=== PATIENT | male | born 1975 | race Caucasian/White ===

== ENCOUNTER 2016-08-29 10:34 | Inpatient (IN) | payer BC, OTHER ==
[~2016-08-29] VITALS: Ht 175.3 cm; Wt 111.1 kg
--- NOTE | 2016-08-29 13:25 | NUR ---
Intake assessment; Patient is a 41 year old male, presented to [facility] to detoxify from Heroin, and Benzodiazepines. Patient is AOX4, appears slightly anxious and nervous. Patient's vital signs are as follows; BP 110/76, HR 81, temperature 97.6, respirations 18, Spo2 95% on room air. Patient stated that he did not bring any home medications with him. Educated patient regarding unit policies and protocols, patient verbalized understanding. Will continue with further interview when patient is up in the unit.
[2016-08-29 13:35] VITALS: BP 110/76
[2016-08-29] MEDS ORDERED: HYDROXYZINE PAMOATE 25 MG CAPSULE PO PRN (14:00)
[2016-08-29] MEDS ORDERED: MAG HYDROX/AL HYDROX/SIMETH 30 ML LIQUID UDC PO PRN (14:00)
[2016-08-29] MEDS ORDERED: MAGNESIUM HYDROXIDE 30 ML LIQUID UDC PO PRN (14:00)
[2016-08-29] MEDS ORDERED: ONDANSETRON 4 MG/2 ML VIAL IM PRN (14:00)
[2016-08-29] MEDS ORDERED: MIRALAX 17 GM POWD.PACK PO PRN (14:00)
[2016-08-29] MEDS ORDERED: DICYCLOMINE HCL 20 MG TABLET PO PRN (14:00)
[2016-08-29] MEDS ORDERED: ACETAMINOPHEN 325 MG TABLET PO PRN (14:00)
[2016-08-29] MEDS ORDERED: LOPERAMIDE HCL 2 MG CAPSULE PO PRN ×2 (14:00)
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
[2016-08-29] MEDS ORDERED: DIAZEPAM 10 MG TABLET PO SCH ×2 (15:00→21:00)
[2016-08-29 15:30] LABS: *AMPHETAMINE, URINE NEGATIVE (NEGATIVE); *BARBITURATE, URINE NEGATIVE (NEGATIVE); *CANNABINOID, URINE NEGATIVE (NEGATIVE); *COCCAINE, URINE NEGATIVE (NEGATIVE); *OPIATE, URINE POSITIVE (NEGATIVE); *PHENCYCLIDINE SCREEN,URINE NEGATIVE (NEGATIVE)
[2016-08-29 15:36] LABS: BASOPHILS # (AUTO) 0.1 K/uL (0.0-8.0); BASOPHILS % (AUTO) 0.6 % (0.0-2.0); EOSINOPHILS # (AUTO) 0.3 K/uL (0.0-0.7); EOSINOPHILS % (AUTO) 2.4 % (0.0-7.0); HEMATOCRIT 36.9 % (40-50); HEMOGLOBIN 12.3 G/DL (14.0-18.0); LYMPHOCYTES # (AUTO) 2.7 K/uL (20.0-40.0); LYMPHOCYTES % (AUTO) 24.5 % (20.5-51.5); MEAN CORPUSCULAR HEMOGLOBIN 31.7 UUG (27.0-31.0); MEAN CORPUSCULAR HGB CONC 33 g/dL (32.0-37.0); MONOCYTES # (AUTO) 0.8 K/uL (2.0-10.0); MONOCYTES % (AUTO) 6.8 % (0.0-11.0); NEUTROPHILS # (AUTO) 7.2 K/uL (1.8-8.9); NEUTROPHILS % (AUTO) 65.7 % (38.5-71.5); PLATELET COUNT (AUTO) 269 K/UL (150-450); RED BLOOD CELL COUNT(AUTO) 3.89 MIL/UL (4.7-6.1); RED CELL DISTRIBUTION WIDTH 15.8 % (11.5-14.5); WHITE BLOOD COUNT (AUTO) 11.1 K/UL (4.0-11.2)
[2016-08-29 15:49] LABS: ETHANOL < 3 MG/DL (0-0)
[2016-08-29 15:53] LABS: ALANINE AMINOTRANSFERASE 28 U/L (16-63); ALBUMIN 3.2 g/dL (3.4-5.0); ALKALINE PHOSPHATASE 116 U/L (50-136); ASPARTATE AMINOTRANSFERASE 39 U/L (15-37); BILIRUBIN,TOTAL 0.6 mg/dL (0.2-1.0); CALCIUM 8.6 mg/dL (8.5-10.1); CHLORIDE 102 mmol/L (98-107); CREATININE 0.7 mg/dL (0.6-1.3); GFR 124 mL/min (>60); GLUCOSE 118 mg/dL (74-106); MAGNESIUM 1.8 mg/dL (1.8-2.4); NT-PRO BNP 126 pg/mL (0-125); POTASSIUM 3.5 mmol/L (3.5-5.1); SODIUM SERUM 141 mmol/L (136-145); TOTAL PROTEIN, SERUM 7.8 g/dL (6.4-8.2); UREA NITROGEN, BLOOD 9 mg/dL (7-18)
[2016-08-29 15:55] LABS: CARBON DIOXIDE 33 mmol/L (21-32)
[2016-08-29 16:00] VITALS: BP 98/67
[2016-08-29 16:18] LABS: THYROID STIMULATING HORMONE 2.434 mIU/mL (0.358-3.740)
[2016-08-29 16:31] LABS: HIV-1 p24 ANTIGEN NON REACTIVE (NONREACTIVE); HIV-1/2 ANTIBODY NON REACTIVE (NONREACTIVE)
[2016-08-29] MEDS ORDERED: DIAZEPAM 10 MG TABLET PO PRN ×2 (17:15)
[2016-08-29] MEDS ORDERED: DIAZEPAM 5 MG TABLET PO PRN (17:15)
[2016-08-29] MEDS ORDERED: LORAZEPAM 2 MG/1 ML VIAL IM PRN (17:15)
[2016-08-29] MEDS ORDERED: MAGNESIUM OXIDE 400 MG TABLET PO ONE (17:45)
[2016-08-29] MEDS ORDERED: POTASSIUM CHLORIDE 10 MEQ CAPSULE.SA PO ONE (17:45)
--- NOTE | 2016-08-29 18:44 | NUR ---
End of shift note; Patient is AOX4. Patient was seen and evaluated by MD. Patient to start Valium and Subutex tapers. Patient remained compliant with treatment plan and medication regime. DVT pumps at bedside for VTE score of 2, educated patient on how to use pumps to prevent DVT, verbalized understanding. Patient is on fall and seizure precaution. Bed in lowest position, call light within reach. all safety measures secured. Met all needs.
[2016-08-29 20:00] VITALS: BP 99/62
--- NOTE | 2016-08-29 20:45 | NUR ---
START OF SHIFT NOTE Pt is a 41 y/o male admitted for Xanax, Heroin, and Klonopin dependence and use. Pt has NKA but reported a PMH of back, hip, and shoulder injury, bradycardia, and hepatitis c. Per day shift nurse pt was placed on a 6 day Subutex and Valium taper and is tolerating medication well with no s/e or a/r reported. Pt is scheduled to begin Subutex taper in tomorrow. Per day shift nurse pt didn't receive any PRNS during the day shift. Last COW: 5 and CIWA: 10 (1600). At this time the pt is laying down in bed watching television. Pt stated " I'm okay. My body is aching all over though." Pt was encouraged to notify staff of any changes in condition or of any concerns. Pt verbalized an understanding. All safety measures in place. Will continue to monitor.
[2016-08-29] MEDS ORDERED: BUPRENORPHINE HCL 2 MG TAB.SUBL SL PRN (21:00)
[2016-08-29] MEDS: GABAPENTIN 300 MG CAPSULE PO SCH (21:26)
[2016-08-29] MEDS: IBUPROFEN 600 MG TABLET PO PRN (21:26)
[2016-08-29] MEDS: METHOCARBAMOL 750 MG TABLET PO PRN (21:27)
--- NOTE | 2016-08-29 21:27 | NUR ---
ROBAXIN, BENADRYL, AND MOTRIN PRN Pt stated " I need something for my body aches and leg pain. Its about a 6/10 right now. I also need something to help me sleep." Benadryl 50 mg PO PRN, Motrin 600 mg PO PRN, and Robaxin 750 mg PO PRN was given. Pt was encouraged to notify staff of any changes in condition or of any concerns. Pt verbalized an understanding. All safety measures in place. Will monitor for effectiveness.
[2016-08-29] MEDS: diphenhydrAMINE 50 MG CAPSULE PO PRN (21:34)
--- NOTE | 2016-08-29 22:17 | NUR ---
CANDY, LETY, AND KENNEDY Pt stated " I feel better. I'm going back to sleep." PRNS effective. All safety measures in place. Will continue to monitor. Addendum: 08/30/16 at 0518 by MO CONTRERAS LVN REASSESSMENT
[2016-08-30] VITALS: BP_SYST 104; BP_SYST 98; BP_DIAS 55; BP_DIAS 71
[2016-08-30 04:00] VITALS: BP 112/61
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
--- NOTE | 2016-08-30 07:39 | NUR ---
START OF SHIFT Received pt this am AOx4. Pt c/o body aches, stomach pains and anxiety this morning. He is on a 6 day Valium taper which started yesterday and 6 day Subutex taper to start this morning. Pt was given PRN Benadryl, Robaxin, and Motrin per night nurse with effectiveness. Pt slept 8 hours. 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 Encouraged pt to increase fluid intake to facilitate detox. Will provide safe and supportive environment. Will monitor.
[2016-08-30 08:00] VITALS: BP 101/67
[2016-08-30] MEDS: BUPRENORPHINE HCL 2 MG TAB.SUBL SL SCH ×4 (08:15→21:10)
[2016-08-30] MEDS: DIAZEPAM 10 MG TABLET PO SCH ×4 (08:16→21:11)
[2016-08-30] MEDS: MULTIVITAMINS,THERAPEUTIC TABLET PO SCH (08:16)
[2016-08-30] MEDS: GABAPENTIN 300 MG CAPSULE PO SCH ×3 (08:16→21:11)
[2016-08-30] MEDS ORDERED: DIAZEPAM 10 MG TABLET PO SCH (09:00)
[2016-08-30] MEDS ORDERED: TUBERCULIN,PURIF.PROT.DERIV. 5 TU/0.1 ML TEST ID ONE (09:00)
[2016-08-30] MEDS ORDERED: BUPRENORPHINE HCL 2 MG TAB.SUBL SL ONE ×2 (10:30→19:00)
[2016-08-30] MEDS ORDERED: DIAZEPAM 10 MG TABLET PO ONE (10:30)
--- NOTE | 2016-08-30 11:28 | NUR ---
PRN MEDS PRN Bentyl given for c/o stomach cramps 6/10 on pain scale. Will reassess
[2016-08-30] MEDS ORDERED: CLONIDINE HCL 0.1 MG TABLET PO ONE (11:30)
[2016-08-30 12:00] VITALS: BP_SYST 125; BP_SYST 175; BP_DIAS 68; BP_DIAS 93
[2016-08-30] MEDS: FLUTICASONE PROP NASAL SPRAY 16 GM BOTTLE NS SCH (12:12)
--- NOTE | 2016-08-30 12:18 | NUR ---
PRN REASSESSMENT Pt states stomach pain is now 4/10. Will continue to monitor
[2016-08-30] MEDS: IBUPROFEN 600 MG TABLET PO PRN (13:17)
--- NOTE | 2016-08-30 13:18 | NUR ---
PRN MEDICATION PRN motrin given for c/o back pain 10/10 on pain scale. Will reassess.
--- NOTE | 2016-08-30 14:00 | NUR ---
PRN REASSESSMENT Pt reports back pain is now 4/10 on pain scale. Pt resting in bed with bed locked and in lowest position and call garcia within reach Will monitor
[2016-08-30] MEDS ORDERED: DIAZEPAM 10 MG TABLET PO PRN ×2 (14:15)
[2016-08-30] MEDS ORDERED: DIAZEPAM 5 MG TABLET PO PRN (14:15)
[2016-08-30] MEDS ORDERED: BUPRENORPHINE HCL 2 MG TAB.SUBL SL PRN (14:15)
--- NOTE | 2016-08-30 14:17 | NUR ---
ISOLATION ORDER Patient placed on contact precautions for positive MRSA. Educated patient
[2016-08-30 15:32] LABS: BASOPHILS % (AUTO) 0.5 % (0.0-2.0); EOSINOPHILS # (AUTO) 0.1 K/uL (0.0-0.7); EOSINOPHILS % (AUTO) 0.9 % (0.0-7.0); HEMATOCRIT 38.4 % (40-50); HEMOGLOBIN 12.5 G/DL (14.0-18.0); LYMPHOCYTES # (AUTO) 1.5 K/uL (20.0-40.0); LYMPHOCYTES % (AUTO) 18.4 % (20.5-51.5); MEAN CORPUSCULAR HEMOGLOBIN 30.8 UUG (27.0-31.0); MEAN CORPUSCULAR HGB CONC 33 g/dL (32.0-37.0); MEAN CORPUSCULAR VOLUME 94.3 FL (82.0-92.0); MONOCYTES # (AUTO) 0.6 K/uL (2.0-10.0); MONOCYTES % (AUTO) 7.6 % (0.0-11.0); NEUTROPHILS # (AUTO) 6.2 K/uL (1.8-8.9); NEUTROPHILS % (AUTO) 72.6 % (38.5-71.5); PLATELET COUNT (AUTO) 282 K/UL (150-450); RED BLOOD CELL COUNT(AUTO) 4.08 MIL/UL (4.7-6.1); RED CELL DISTRIBUTION WIDTH 15.7 % (11.5-14.5); WHITE BLOOD COUNT (AUTO) 8.4 K/UL (4.0-11.2)
[2016-08-30 15:54] LABS: CALCIUM 9.1 mg/dL (8.5-10.1); CREATININE 0.7 mg/dL (0.6-1.3); PHOSPHOROUS 1.6 mg/dL (2.5-4.9); POTASSIUM 3.8 mmol/L (3.5-5.1)
[2016-08-30 16:00] VITALS: BP 114/84
--- NOTE | 2016-08-30 18:41 | NUR ---
END OF SHIFT Pt on 6 day Valium/6 day Subutex taper and tolerating well. Pt on contact precautions for positive MRSA swab of the nares. Pt given PRN Bentyl and Motrin for stomach pain and back pain this shift with effectiveness. Last COWS . Patient had heightened W/D symptoms during shift and was properly medicated per doctor orders. TB test administered to [facility] and is to be read 09/01/16. Pt currently resting in bed with bed locked and in lowest position and call garcia within reach. All needs have been met. Safety measures in place. Will endorse to night nurse. Addendum: 08/30/16 at 1856 by JOSE MALLORY RN COWS 13. 4 mg Subutex one time dose ordered at 1850. Waiting for pharmacy to verify. Will endorse to night nurse to administer. Addendum: 08/30/16 at 1911 by JOSE MALLORY RN Subutex administered. Endorsed to night nurse to reassess COWS
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
[2016-08-30 20:00] VITALS: BP 128/80
[2016-08-30] MEDS ORDERED: NEUTRA PHOS PACKET PO ONE (21:00)
[2016-08-30] MEDS: diphenhydrAMINE 50 MG CAPSULE PO PRN (21:11)
[2016-08-30] MEDS: MUPIROCIN 2% OINT 22 GM TUBE NS SCH (21:11)
[2016-08-30] MEDS: ONDANSETRON ODT 4 MG TAB.RAPDIS SL PRN (21:11)
[2016-08-30] MEDS: METHOCARBAMOL 750 MG TABLET PO PRN (21:11)
--- NOTE | 2016-08-30 21:11 | NUR ---
PRN Administration Patient complains of 8/10 body aches & nausea. No episode of vomiting noted. Patient also requesting for medication for sleep. Patient noted to be restless and with facial grimacing noted. PRN Robaxin, Zofran & Benadryl given as ordered. Safety precautions are in place. Will continue to monitor patient.
--- NOTE | 2016-08-30 22:11 | NUR ---
PRN Reassessment Patient asleep in bed and appears comfortable. No shortness of breath noted. No s/s of distress. Safety precautions are in place. Will continue to monitor.
[2016-08-31] VITALS: BP 104/55
--- NOTE | 2016-08-31 00:21 | NUR ---
MD Communication Vitals signs checked and noted with O2Sat @ 88% on RA. Patient vitals B/P 104/55, OR 55, RR 16. Educated patient about need for oxygen to maintain O2sat but refused 3x. Explained risk and benefits but still refused. Per pt, he does not have any trouble breathing. Dr. Herrmann notified and aware. Will continue to monitor patient.
[2016-08-31 04:00] VITALS: BP 114/68
[2016-08-31] MEDS: IBUPROFEN 600 MG TABLET PO PRN (05:24)
[2016-08-31] MEDS: CLONIDINE HCL 0.1 MG TABLET PO PRN (05:24)
[2016-08-31] MEDS: ONDANSETRON ODT 4 MG TAB.RAPDIS SL PRN (05:24)
--- NOTE | 2016-08-31 05:24 | NUR ---
PRN Administration Patient complains of nausea, sweating, chills, body aches, mild headache & anxiety. Patient is anxious and agitated. Vitals WNL. PRN Zofran, Clonidine, Motrin & Vistaril administered as ordered. Will continue to monitor patient.
--- NOTE | 2016-08-31 06:24 | NUR ---
PRN Reassessment Patient is asleep in bed and appears comfortable. No shortness of breath noted. Respiration even & unlabored. No s/s of distress noted. Safety precautions are in place. Will continue to monitor patient.
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
[2016-08-31 08:00] VITALS: BP 114/74
[2016-08-31 08:29] LABS: BASOPHILS # (AUTO) 0.1 K/uL (0.0-8.0); BASOPHILS % (AUTO) 2.2 % (0.0-2.0); EOSINOPHILS # (AUTO) 0.1 K/uL (0.0-0.7); HEMATOCRIT 36.9 % (40-50); HEMOGLOBIN 12.1 G/DL (14.0-18.0); LYMPHOCYTES % (AUTO) 31.5 % (20.5-51.5); MEAN CORPUSCULAR HEMOGLOBIN 30.9 UUG (27.0-31.0); MEAN CORPUSCULAR HGB CONC 33 g/dL (32.0-37.0); MEAN CORPUSCULAR VOLUME 94.5 FL (82.0-92.0); MONOCYTES # (AUTO) 0.5 K/uL (2.0-10.0); MONOCYTES % (AUTO) 7.6 % (0.0-11.0); NEUTROPHILS # (AUTO) 3.7 K/uL (1.8-8.9); NEUTROPHILS % (AUTO) 56.7 % (38.5-71.5); PLATELET COUNT (AUTO) 263 K/UL (150-450); RED CELL DISTRIBUTION WIDTH 15.5 % (11.5-14.5); WHITE BLOOD COUNT (AUTO) 6.4 K/UL (4.0-11.2)
[2016-08-31] MEDS: DIAZEPAM 10 MG TABLET PO SCH ×4 (08:49→21:21)
[2016-08-31 08:50] LABS: BILIRUBIN,TOTAL 0.3 mg/dL (0.2-1.0); CALCIUM 8.4 mg/dL (8.5-10.1); CREATININE 0.7 mg/dL (0.6-1.3); PHOSPHOROUS 2.6 mg/dL (2.5-4.9); POTASSIUM 3.9 mmol/L (3.5-5.1)
[2016-08-31] MEDS: GABAPENTIN 300 MG CAPSULE PO SCH ×3 (08:50→21:22)
[2016-08-31] MEDS: MUPIROCIN 2% OINT 22 GM TUBE NS SCH ×2 (08:50→21:29)
[2016-08-31] MEDS: MULTIVITAMINS,THERAPEUTIC TABLET PO SCH (08:50)
[2016-08-31] MEDS: BUPRENORPHINE HCL 2 MG TAB.SUBL SL SCH ×4 (08:50→21:22)
[2016-08-31 08:51] LABS: ALBUMIN 2.9 g/dL (3.4-5.0); BILIRUBIN,DIRECT 0.1 mg/dL (0.0-0.2); MAGNESIUM 1.9 mg/dL (1.8-2.4); TOTAL PROTEIN, SERUM 7.3 g/dL (6.4-8.2)
[2016-08-31] MEDS: FLUTICASONE PROP NASAL SPRAY 16 GM BOTTLE NS SCH (08:52)
[2016-08-31 09:04] LABS: FOLIC ACID 3.1 NG/ML (8.6-58.9)
[2016-08-31] MEDS ORDERED: BUPRENORPHINE HCL 2 MG TAB.SUBL SL PRN ×2 (11:30→15:15)
[2016-08-31] MEDS ORDERED: DIAZEPAM 10 MG TABLET PO PRN ×4 (11:30→15:15)
[2016-08-31] MEDS ORDERED: BUPRENORPHINE HCL 2 MG TAB.SUBL SL ONE (11:30)
[2016-08-31] MEDS ORDERED: DIAZEPAM 10 MG TABLET PO ONE (11:30)
[2016-08-31] MEDS ORDERED: DIAZEPAM 5 MG TABLET PO PRN ×2 (11:30→15:15)
[2016-08-31 12:00] VITALS: BP 116/84
[2016-08-31 13:06] LABS: HCV AB >11.0 s/co ratio (0.0-0.9); HEPATITIS B CORE AB, IgM Negative (Negative); HEPATITIS B SURFACE AG Negative (Negative)
[2016-08-31] MEDS: BACLOFEN 10 MG TABLET PO SCH ×2 (14:34→21:22)
[2016-08-31] MEDS: DICYCLOMINE HCL 20 MG TABLET PO SCH ×2 (14:34→21:22)
[2016-08-31 16:00] VITALS: BP 100/63
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
[2016-08-31 20:00] VITALS: BP 111/60
[2016-08-31] MEDS ORDERED: TRAZODONE 100 MG TABLET PO SCH (21:00)
--- NOTE | 2016-09-01 07:00 | NUR ---
Start of Shift Pt is a 41 y/o male admitted for Xanax and Heroin dependence. Pt has been placed on a 6 day Subutex and 6 day Valium taper. Pt is tolerating the taper well and mildly withdrawing at this time AEB COWS 4, CIWA 3 at 0400. Pt did not receive any PRN medications and reports sleeping 8 hours. VS WNL, Full Code. Pt is in STABLE condition at this time. Remains compliant with medication and diet regimen. All needs have been met, All safety measures in place per hospital policy. Bed in lowest position, side rails up x2, call-light within reach. Will continue to monitor.
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
[2016-09-01 08:00] VITALS: BP 104/61
[2016-09-01 08:29] LABS: BASOPHILS # (AUTO) 0.2 K/uL (0.0-8.0); EOSINOPHILS # (AUTO) 0.2 K/uL (0.0-0.7); EOSINOPHILS % (AUTO) 2.1 % (0.0-7.0); HEMOGLOBIN 12.9 G/DL (14.0-18.0); LYMPHOCYTES # (AUTO) 2.6 K/uL (20.0-40.0); MEAN CORPUSCULAR HEMOGLOBIN 31.3 UUG (27.0-31.0); MEAN CORPUSCULAR HGB CONC 33 g/dL (32.0-37.0); MEAN CORPUSCULAR VOLUME 94.4 FL (82.0-92.0); MONOCYTES # (AUTO) 0.4 K/uL (2.0-10.0); MONOCYTES % (AUTO) 5.6 % (0.0-11.0); NEUTROPHILS % (AUTO) 54.3 % (38.5-71.5); PLATELET COUNT (AUTO) 233 K/UL (150-450); RED BLOOD CELL COUNT(AUTO) 4.13 MIL/UL (4.7-6.1); RED CELL DISTRIBUTION WIDTH 15.6 % (11.5-14.5); WHITE BLOOD COUNT (AUTO) 7.4 K/UL (4.0-11.2)
[2016-09-01] MEDS: ASCORBIC ACID 250 MG TABLET PO SCH ×2 (08:39→20:20)
[2016-09-01] MEDS: FERROUS SULFATE 325 MG TABEC PO SCH ×2 (08:39→20:20)
[2016-09-01] MEDS: FLUTICASONE PROP NASAL SPRAY 16 GM BOTTLE NS SCH (08:39)
[2016-09-01] MEDS: BACLOFEN 10 MG TABLET PO SCH ×3 (08:40→20:20)
[2016-09-01] MEDS: BUPRENORPHINE HCL 2 MG TAB.SUBL SL SCH ×3 (08:40→20:19)
[2016-09-01] MEDS: DIAZEPAM 10 MG TABLET PO SCH ×3 (08:40→20:20)
[2016-09-01] MEDS: GABAPENTIN 300 MG CAPSULE PO SCH ×3 (08:40→20:21)
[2016-09-01] MEDS: DICYCLOMINE HCL 20 MG TABLET PO SCH ×3 (08:40→20:20)
[2016-09-01] MEDS: MULTIVITAMINS,THERAPEUTIC TABLET PO SCH (08:41)
[2016-09-01] MEDS: MUPIROCIN 2% OINT 22 GM TUBE NS SCH ×2 (08:41→20:22)
[2016-09-01] MEDS: FOLIC ACID 1 MG TABLET PO SCH (08:41)
[2016-09-01 08:47] LABS: CALCIUM 8.8 mg/dL (8.5-10.1); CREATININE 0.8 mg/dL (0.6-1.3); PHOSPHOROUS 3.8 mg/dL (2.5-4.9)
[2016-09-01 12:00] VITALS: BP 110/72
[2016-09-01 16:00] VITALS: BP 112/68
--- NOTE | 2016-09-01 19:29 | NUR ---
End of Shift Endorsement given to nightshift nurse. Pt is a 41 y/o male admitted for Xanax and Heroin dependence. Pt has been placed on a 6 day Subutex and 6 day Valium taper. Pt is tolerating the taper well and mildly withdrawing at this time AEB COWS 3, CIWA 2 at 1600. Pt did not receive any PRN medications, did not participate in groups. Encouraged pt to participate in groups and activities to help him develop the skills needed for sobriety. Intake: 1600ml, Void x1, BM x0. VS WNL, Full Code. Pt is in STABLE condition at this time. Remains compliant with medication and diet regimen. All needs have been met, All safety measures in place per hospital policy. Bed in lowest position, side rails up x2, call-light within reach. Will continue to monitor.
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
[2016-09-01 20:00] VITALS: BP 119/68
[2016-09-01] MEDS: QUETIAPINE FUMARATE 100 MG TABLET PO SCH (20:20)
--- NOTE | 2016-09-02 03:00 | NUR ---
PRN CLONIDINE , ROBAXIN, TYLENOL Pt. complains of body ache 6/10, muscle spasm, flashes. PRN CLONIDINE , ROBAXIN, TYLENOL given as ordered. Safety measures in place : bed on lowest position with side rails x2 up for safety, call light within reach. Will continue to monitor closely and offer help.
[2016-09-02] MEDS: METHOCARBAMOL 750 MG TABLET PO PRN (03:29)
[2016-09-02] MEDS: CLONIDINE HCL 0.1 MG TABLET PO PRN (03:30)
--- NOTE | 2016-09-02 03:55 | NUR ---
REASSESSMENT CLONIDINE , ROBAXIN, TYLENOL Pt. feels better , states decreased level of muscle spasm, decreased level of pain , 3-4/10. Safety measures in place : bed on lowest position with side rails x2 up for safety, call light within reach. Will continue to monitor closely and offer help.
[2016-09-02 04:00] VITALS: BP 125/72
--- NOTE | 2016-09-02 04:30 | NUR ---
PRN TORADOL IM Pt. complains of body ache 12/06. PRN TORADOL given as ordered. Safety measures in place : bed on lowest position with side rails x2 up for safety, call light within reach. Will continue to monitor closely and offer help.
[2016-09-02] MEDS: KETOROLAC TROMETHAMINE 30 MG INJ IM PRN ×2 (05:02→16:52)
--- NOTE | 2016-09-02 05:25 | NUR ---
REASSESSMENT TORADOL IM Pt. feels better , states decreased level decreased level of pain , 2-310. Safety measures in place : bed on lowest position with side rails x2 up for safety, call light within reach. Will continue to monitor closely and offer help.
--- NOTE | 2016-09-02 07:05 | NUR ---
Start of Shift Endorsement received from nightshift nurse. Pt is a 41 y/o male admitted for Xanax and Heroin dependence. Pt has been placed on a 6 day Subutex and 6 day Valium taper. Pt is tolerating the taper well and mildly withdrawing at this time AEB COWS 2, CIWA 3 at 0400. Pt received PRN Tylenol, Robaxin, Toradol and Clonidine. Pt reports trouble falling asleep, pt slept 4 hours. VS WNL, Full Code. Pt is in STABLE condition at this time. Remains compliant with medication and diet regimen. All needs have been met, All safety measures in place per hospital policy. Bed in lowest position, side rails up x2, call-light within reach. Will continue to monitor.
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
[2016-09-02 08:00] VITALS: BP 93/60
[2016-09-02] MEDS: DICYCLOMINE HCL 20 MG TABLET PO SCH ×3 (08:37→20:44)
[2016-09-02] MEDS: GABAPENTIN 300 MG CAPSULE PO SCH ×3 (08:37→20:44)
[2016-09-02] MEDS: BACLOFEN 10 MG TABLET PO SCH ×3 (08:37→20:44)
[2016-09-02] MEDS: MULTIVITAMINS,THERAPEUTIC TABLET PO SCH (08:37)
[2016-09-02] MEDS: FOLIC ACID 1 MG TABLET PO SCH (08:38)
[2016-09-02] MEDS: ASCORBIC ACID 250 MG TABLET PO SCH ×2 (08:38→20:45)
[2016-09-02] MEDS: FLUTICASONE PROP NASAL SPRAY 16 GM BOTTLE NS SCH (08:38)
[2016-09-02] MEDS: FERROUS SULFATE 325 MG TABEC PO SCH ×2 (08:38→20:44)
[2016-09-02] MEDS: DIAZEPAM 5 MG TABLET PO SCH ×4 (08:38→20:45)
[2016-09-02] MEDS: MUPIROCIN 2% OINT 22 GM TUBE NS SCH ×2 (08:38→20:44)
[2016-09-02] MEDS ORDERED: BUPRENORPHINE HCL 2 MG TAB.SUBL SL SCH ×3 (09:00→17:00)
[2016-09-02 12:00] VITALS: BP 108/68
[2016-09-02] MEDS: BUPRENORPHINE HCL 2 MG TAB.SUBL SL SCH ×2 (12:16→20:46)
[2016-09-02 16:00] VITALS: BP 124/84
--- NOTE | 2016-09-02 16:52 | NUR ---
PRN Toradol Pt received PRN Toradol 30mg for reported generalized body aches and back pain rated 9/10.
--- NOTE | 2016-09-02 17:22 | NUR ---
Medication Re-assessment Medication was effective, Pt reports 3/10 pain at this time and reports feeling comfortable.
--- NOTE | 2016-09-02 19:01 | NUR ---
End of Shift Endorsement given to nightshift nurse. Pt is a 41 y/o male admitted for Xanax and Heroin dependence. Pt has been placed on a 6 day Subutex and 6 day Valium taper. Pt is tolerating the taper well and moderately withdrawing at this time AEB COWS 6, CIWA 3 at 1600. Pt received PRN Toradol for severe generalized body aches. Held Subutex 2mg at [address] Herrmann due to COWS below 10. Pt participated in group and activities. Intake: 1500ml, Void x1, BM x0. VS WNL, Full Code. Pt is in STABLE condition at this time. Remains compliant with medication and diet regimen. All needs have been met, All safety measures in place per hospital policy. Bed in lowest position, side rails up x2, call-light within reach. Will continue to monitor.
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
[2016-09-02 20:00] VITALS: BP 119/83
[2016-09-02] MEDS: QUETIAPINE FUMARATE 100 MG TABLET PO SCH (20:45)
[2016-09-02] MEDS: TRAZODONE 100 MG TABLET PO PRN (21:07)
--- NOTE | 2016-09-02 21:07 | NUR ---
PRN Milk of Magnesia and Trazodone administration Pt reports no BM since prior to admission. Bowel sounds present. He also reports inability to sleep and routine Seroquel alone was not effective last night. PRN Milk of Magnesia and Trazodone administered. Encouraged fluids.
--- NOTE | 2016-09-02 22:07 | NUR ---
PRN MOM and Trazodone reassessment PRN Trazodone effective. Pt is lying in bed resting with eyes closed. Respirations even and unlabored. PRN MOM not yet effective. Pt did not report a BM prior to going to sleep.
[2016-09-03] VITALS: BP 119/69
--- NOTE | 2016-09-03 00:15 | NUR ---
Oxygen 2LMP via nasal cannula Pt's O2 sat was 91% and RR 20 while sleeping. Respirations even and unlabored. Pt placed on Oxygen 2LPM via nasal cannula and O2 sat increased to 96%.
[2016-09-03 04:00] VITALS: BP 119/69
--- NOTE | 2016-09-03 07:05 | NUR ---
Start of Shift Endorsement received from nightshift nurse. Pt is a 41 y/o male admitted for Xanax and Heroin dependence. Pt has been placed on a 6 day Subutex and 6 day Valium taper. Pt is tolerating the taper; mildly withdrawing at this time AEB COWS 2, CIWA 2 at 0400. Pt received PRN Trazodone for sleep. PT has been placed on PRN 2L of Oxygen due to O2 saturation of 91% at midnight. Pt received milk of magnesium for reported constipation. Pt reports sleeping 8 hours and feeling very rested. VS WNL, Full Code. Pt is in STABLE condition at this time. Remains compliant with medication and diet regimen. All needs have been met, All safety measures in place per hospital policy. Bed in lowest position, side rails up x2, call-light within reach. Will continue to monitor.
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
[2016-09-03 08:00] VITALS: BP 102/58
[2016-09-03] MEDS: DIAZEPAM 5 MG TABLET PO SCH ×3 (08:27→22:04)
[2016-09-03] MEDS: KETOROLAC TROMETHAMINE 30 MG INJ IM PRN ×2 (08:28→17:56)
[2016-09-03] MEDS: FERROUS SULFATE 325 MG TABEC PO SCH ×2 (08:28→22:02)
[2016-09-03] MEDS: FOLIC ACID 1 MG TABLET PO SCH (08:28)
[2016-09-03] MEDS: BACLOFEN 10 MG TABLET PO SCH ×3 (08:28→22:03)
[2016-09-03] MEDS: ASCORBIC ACID 250 MG TABLET PO SCH ×2 (08:28→22:04)
[2016-09-03] MEDS: DICYCLOMINE HCL 20 MG TABLET PO SCH ×3 (08:28→22:02)
[2016-09-03] MEDS: MULTIVITAMINS,THERAPEUTIC TABLET PO SCH (08:28)
[2016-09-03] MEDS: GABAPENTIN 300 MG CAPSULE PO SCH ×2 (08:28→14:46)
[2016-09-03] MEDS: MUPIROCIN 2% OINT 22 GM TUBE NS SCH ×2 (08:29→22:02)
[2016-09-03] MEDS: FLUTICASONE PROP NASAL SPRAY 16 GM BOTTLE NS SCH (08:29)
--- NOTE | 2016-09-03 08:30 | NUR ---
Pt received PRN Toradol 30mg for reported generalized body aches and back pain rated 8/10.
[2016-09-03] MEDS ORDERED: BUPRENORPHINE HCL 2 MG TAB.SUBL SL SCH ×2 (09:00)
--- NOTE | 2016-09-03 09:00 | NUR ---
Medication Re-assessment Medication was effective, Pt reports 1/10 pain at this time and reports feeling comfortable.
[2016-09-03 12:00] VITALS: BP 105/66
[2016-09-03] MEDS: BUPRENORPHINE HCL 2 MG TAB.SUBL SL SCH ×2 (14:46→22:13)
[2016-09-03] MEDS ORDERED: BISACODYL 5 MG TABLET.DR PO PRN (15:30)
[2016-09-03] MEDS ORDERED: MAGNESIUM CITRATE 296 ML BOTTLE PO PRN (15:30)
[2016-09-03 16:00] VITALS: BP 142/79
--- NOTE | 2016-09-03 17:42 | NUR ---
PRN Medications Administered PRN Toradol for 8/10 back and body pain. Administered Magnesium Citrate for constipation
--- NOTE | 2016-09-03 18:10 | NUR ---
Medication re-assessment PT reports pain of 2/10, Toradol shot was effective. Pt has yet to have a BM.
--- NOTE | 2016-09-03 19:00 | NUR ---
End of Shift Endorsement given to nightshift nurse. Pt is a 41 y/o male admitted for Xanax and Heroin dependence. Pt has been placed on a 6 day Subutex and 6 day Valium taper. Pt is tolerating the taper well and moderately withdrawing at this time AEB COWS 7, CIWA 2 at 1600. Pt received PRN Toradol x2 for severe generalized body aches. PT reports constipation, administered Magnesium Citrate at 1742. Encouraged pt to participate in groups. Educated pt on diet regimen and importance of drinking more water. Pt participated in group and activities. Intake: 1060ml, Void x2, BM x0. VS WNL, Full Code. Pt is in STABLE condition at this time. Remains compliant with medication and diet regimen. All needs have been met, All safety measures in place per hospital policy. Bed in lowest position, side rails up x2, call-light within reach. Will continue to monitor.
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
[2016-09-03 20:30] VITALS: BP 117/68
[2016-09-03] MEDS: DOCUSATE SODIUM 250 MG CAPSULE PO SCH (21:00)
[2016-09-03] MEDS ORDERED: GABAPENTIN 300 MG CAPSULE PO SCH (21:00)
[2016-09-03] MEDS: NAPROXEN 500 MG TABLET PO SCH (22:03)
[2016-09-03] MEDS: QUETIAPINE FUMARATE 100 MG TABLET PO SCH (22:04)
[2016-09-03] MEDS: TRAZODONE 100 MG TABLET PO PRN (22:04)
--- NOTE | 2016-09-03 22:05 | NUR ---
PRN Trazodone administration Pt reports inability to sleep and that Seroquel alone does not work to promote sleep. PRN Trazodone administered.
--- NOTE | 2016-09-03 23:05 | NUR ---
PRN Trazodone reassessment PRN Trazodone effective. Pt is lying comfortably in bed resting with eyes closed. Respirations even and unlabored.
[2016-09-04] VITALS: BP 98/55
--- NOTE | 2016-09-04 00:15 | NUR ---
PRN Oxygen Pt's oxygen saturation is 89%. He is lying in bed resting with eyes closed. HOB elevated. Respirations 20 even and unlabored. Placed on Oxygen 3LPM via nasal cannula and oxygen saturation increased to 96%.
[2016-09-04 04:30] VITALS: BP 102/62
[2016-09-04] MEDS: KETOROLAC TROMETHAMINE 30 MG INJ IM PRN (05:10)
--- NOTE | 2016-09-04 05:14 | NUR ---
PRN Toradol administration Pt woke up an reported generalized pain 8/10. He has facial grimacing, restlessness, and irritability. PRN Toradol administered.
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
--- NOTE | 2016-09-04 07:45 | NUR ---
START OF SHIFT Rcvd endorsement to night nurse. Client is lying in bed, sound asleep, easy to arouse RR 16, even, non-labored, he is on O2 2LMP via nasal cannula, saturation @ 95%. Skin warm/moist to touch. He continues on Diazepam and Subutex taper to manage symptoms of withdrawal, tolerating well. NKA, full code status, and on a cardiac diet. He is on contact isolation due to MRSA of the nares, he is on last day of Bactroban 2% antibiotic, tolerating well. PRN Trazodone and Toradol administered. Pt placed on Oxygen PRN per orders while sleeping due to decreased O2 sat. Last COWS 2 and CIWA 2. He slept for 7 hours. Safety measures in place, call light within reach, side rails up/padded x 2, bed locked and in low position. Will continue to monitor.
[2016-09-04 08:53] VITALS: BP 110/67
[2016-09-04] MEDS ORDERED: BUPRENORPHINE HCL 2 MG TAB.SUBL SL SCH (09:00)
[2016-09-04] MEDS ORDERED: FAMOTIDINE 20 MG TABLET PO SCH (09:00)
[2016-09-04] MEDS ORDERED: DIAZEPAM 5 MG TABLET PO SCH (09:00)
[2016-09-04] MEDS: FERROUS SULFATE 325 MG TABEC PO SCH (09:45)
[2016-09-04] MEDS: BACLOFEN 10 MG TABLET PO SCH ×2 (09:46→14:51)
[2016-09-04] MEDS: MULTIVITAMINS,THERAPEUTIC TABLET PO SCH (09:46)
[2016-09-04] MEDS: GABAPENTIN 300 MG CAPSULE PO SCH ×2 (09:46→14:51)
[2016-09-04] MEDS: DOCUSATE SODIUM 250 MG CAPSULE PO SCH (09:46)
[2016-09-04] MEDS: FOLIC ACID 1 MG TABLET PO SCH (09:46)
[2016-09-04] MEDS: ASCORBIC ACID 250 MG TABLET PO SCH (09:46)
[2016-09-04] MEDS: NAPROXEN 500 MG TABLET PO SCH (09:46)
[2016-09-04] MEDS: BUPRENORPHINE HCL 2 MG TAB.SUBL SL SCH ×2 (09:47→14:51)
[2016-09-04] MEDS: DIAZEPAM 5 MG TABLET PO SCH ×2 (09:47→14:51)
[2016-09-04] MEDS: DICYCLOMINE HCL 20 MG TABLET PO SCH ×2 (09:47→14:51)
[2016-09-04] MEDS: FLUTICASONE PROP NASAL SPRAY 16 GM BOTTLE NS SCH (09:48)
[2016-09-04] MEDS: MUPIROCIN 2% OINT 22 GM TUBE NS SCH (09:48)
[2016-09-04 12:30] VITALS: BP 127/76
[2016-09-04 16:55] VITALS: BP 140/84
--- NOTE | 2016-09-04 17:28 | NUR ---
MD communication Pt states that he wants to leave AM, Dr Li notified. NNO at this time. Multiple staff members attempting to speak to client and encourage client to stay and continue with the program. Pt continues to state that he wants to leave [facility].
--- NOTE | 2016-09-04 17:57 | NUR ---
AMA: Client stated the he was not ready and wanted to leave. Client was educated about the risks and consequences of leaving AMA, client verbalized understanding but still requested to leave. multiple staff members spoke with client without any success. VS are WNL, client denies any suicidal/homicidal ideations, skin intact , Dr. Li notified. client was given a list of community resources in case he is in need of help. all belongings returned to client and he left the unit at 1757.
[2016-09-05] MEDS ORDERED: BUPRENORPHINE HCL 2 MG TAB.SUBL SL SCH (09:00)
[2016-09-05] MEDS ORDERED: DIAZEPAM 5 MG TABLET PO SCH (09:00)
[2016-09-05 23:11] LABS: *HCV QUANT 320780 IU/mL (.)
[2016-09-06] MEDS ORDERED: BUPRENORPHINE HCL 2 MG TAB.SUBL SL SCH (09:00)
== END 2016-09-04 17:57 | disposition left against medical advice (07) | DRG 894 ==
LOC: SRC 12:41
PROVIDERS: ADMIT Internal Medicine; ATTEND Internal Medicine
PROC: HZ2ZZZZ Detoxification Services for Substance Abuse Treatment (ICD-10-PCS; principal; 2016-08-29)
PROC: HZ41ZZZ Group Counseling for Substance Abuse Treatment, Behavioral (ICD-10-PCS; 2016-09-03)
DX: F13.230 Sedative, hypnotic or anxiolytic dependence with withdrawal, uncomplicated (principal); E87.3 Alkalosis; F11.23 Opioid dependence with withdrawal; G47.00 Insomnia, unspecified; Z22.322 Carrier or suspected carrier of Methicillin resistant Staphylococcus aureus; Z81.1 Family history of alcohol abuse and dependence; Z80.9 Family history of malignant neoplasm, unspecified; E88.81 Metabolic syndrome and other insulin resistance; E66.9 Obesity, unspecified; Z68.36 Body mass index [BMI] 36.0-36.9, adult; Z71.3 Dietary counseling and surveillance; F17.210 Nicotine dependence, cigarettes, uncomplicated; F41.1 Generalized anxiety disorder; F41.0 Panic disorder [episodic paroxysmal anxiety]; T14.8 Other injury of unspecified body region; G89.29 Other chronic pain; V89.2XXS Person injured in unspecified motor-vehicle accident, traffic, sequela; B19.20 Unspecified viral hepatitis C without hepatic coma; E86.0 Dehydration; R60.0 Localized edema; M54.5 Low back pain; G47.36 Sleep related hypoventilation in conditions classified elsewhere; K59.03 Drug induced constipation; D50.9 Iron deficiency anemia, unspecified; D52.9 Folate deficiency anemia, unspecified; G47.33 Obstructive sleep apnea (adult) (pediatric)
CPT/HCPCS: 36415; 70030-TC; 80307; 80346; 80361; 82746; 83550; 83735; 84100; 84443; 85025; 86580; 86592; 86705; 86803; 87340; 87521; 87806; 93005; 93307; A4663; G6040-TC; J1885; J3535; Q0162; Q0163